=== PATIENT | male | born 1980 | race American Indian/Alaskan Native ===

== ENCOUNTER 2018-11-28 18:53 | Emergency (ER) | payer OTHER, SELFPAY ==
[2018-11-28 19:05] VITALS: BP 111/77; PULSE 106; RESP 16; TEMP 36.7; O2SAT 98; BMI 26.6
[2018-11-28 19:10] VITALS: O2SAT 98
--- NOTE | 2018-11-28 19:25 | ED.BACK ---
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 It was his 2nd dive of the day, his 1st went to a max depth of 82, with an average of 69 ft, he was down for 45 minutes on a compressor and had a 90 minutes break prior to this, his 2nd dive. This was a 33 minutes dive again to a maximum depth of 82 ft, this dive ended at 4:05 p.m. any states his symptoms started about 1 hour later and lasted 1 hour. He denies any headache, blurred vision or or trouble with speech. He denies chest pain, shortness of breath or abdominal pain. his only ongoing symptoms are he is intensely itchy from his waist up, and had pain in both shoulders which is largely gone. MD Complaint: back pain Onset (ago): hour(s) Duration: now resolved Similar Symptoms Previously: No Location: lumbar spine Severity: moderate Quality: aching Radiation: left leg and right leg Relieving factors: none Exacerbating factors: none Associated symptoms: numbness and difficulty walking Related Data Previous Rx's Medication Instructions Recorded fluocinonide 0 TOPICAL TID #30 gm 04/22/17 celecoxib [Celebrex] 200 mg PO BID #60 cap 06/25/17 gabapentin [Neurontin] 0 PO SEE INSTRUCTIONS #150 tab 06/25/17 Allergies Allergy/AdvReac Type Severity Reaction Status Date / Time No Known Drug Allergies Allergy Verified 11/28/18 19:10 Review of Systems Constitutional Denies chills, Denies fever(s), Denies lethargy and Reports weakness Eyes Denies change in vision, Denies eye discharge, Denies irritation and Denies loss of vision ENT Ears, Nose, Mouth, and Throat: Denies change in voice, Denies neck pain and Denies sore throat Cardiovascular Denies chest pain, Denies irregular heart rhythm, Denies lightheadedness, Denies palpitations, Denies dyspnea, Denies dyspnea on exertion and Denies orthopnea Respiratory Denies cough, Denies dyspnea, Denies dyspnea on exertion and Denies wheezing Gastrointestinal Gastrointestinal: Denies abdominal pain, Denies change in bowel habits, Denies diarrhea, Denies nausea and Denies vomiting Genitourinary Denies hematuria, Denies flank pain, Denies urinary incontinence and Denies urinary urgency Musculoskeletal Reports muscle cramps, Denies neck pain and Reports numbness Integumentary/Breasts Denies pruritus, Denies erythema, Denies rash and Denies wounds Neurologic Denies confusion, Denies loss of vision, Reports numbness and Reports weakness Psychiatric Denies anxiety, Denies confusion, Denies depression, Denies homicidal ideation and Denies suicidal ideation Endocrine Denies palpitations Hematologic/Lymphatic Denies easy bruising Allergic/Immunologic Denies wheezing PFSH Social History Smoking Status: Never smoker Social History Smoking Status: Never smoker Exam Narrative Exam Narrative: GENERAL: [38] year old patient appears stated age. Well-nourished, well-developed patient, in mild distress. HEAD: Atraumatic. Normocephalic. EYES: Pupils equal round and reactive. Extraocular motions intact. No scleral icterus. No injection or drainage. ENT: Nose without bleeding, purulent drainage. Throat without erythema, tonsillar hypertrophy or exudate. Airway patent. NECK: Trachea midline. Non tender CARDIOVASCULAR: Regular rate and rhythm without murmurs, gallops, or rubs. RESPIRATORY: Clear to auscultation. Breath sounds equal bilaterally. No wheezes, rales, or rhonchi. GASTROINTESTINAL: Abdomen soft, non-tender, nondistended. EXTREMITIES: No edema or joint tenderness. BACK: Nontender without deformity or crepitance. No flank tenderness. NEURO: AOx3. SKIN: No rash or erythema of visible areas Initial Vital Signs Initial Vital Signs: Vital Signs Temperature 98.1 F 11/28/18 19:05 Pulse Rate 106 H 11/28/18 19:05 Respiratory Rate 16 11/28/18 19:05 Blood Pressure 111/77 11/28/18 19:05 Pulse Oximetry 98 11/28/18 19:05 Course Orders Ordered: ED Orders 11/28/18 19:30 Basic Metabolic Panel Stat C-Reactive Protein Quant Stat Complete Blood Count AUTO DIFF Stat Erythrocyte Sedimentation Rate Stat 11/28/18 19:39 XR chest 2V Stat Reevaluation(s) Reevaluation #1: Patient completely asymptomatic for newly entirety of visit. Consultations Consultation #1: call to [facility], after discussion they do not hear any obvious, significantly concerning findings consistent with decompression illness but do recommend consultation with dive physician Consultation #2: Called to hyperbaric physician at [facility], Dr. Viera, whom shares this opinion, that this is not classically decompression illness. His recommendation is to administer oxygen for for at least 2 more hours and discharged home with strict return precautions and instructions [facility] Vital Signs - 8 hr 11/28/18 19:05 11/28/18 19:10 11/28/18 19:40 Temperature 98.1 F Pulse Rate 106 H 75 Respiratory Rate 16 14 Blood Pressure 111/77 Blood Pressure [Right Arm] 116/71 Pulse Oximetry 98 98 100 11/28/18 21:00 11/28/18 21:30 11/28/18 23:08 Temperature Pulse Rate 63 65 72 Respiratory Rate 15 12 Blood Pressure 116/76 Blood Pressure [Right Arm] 114/68 126/70 Pulse Oximetry 100 100 100 MDM - Back Pain/Injury Lab Data Result diagrams: 11/28/18 19:30 11/28/18 19:30 Lab Results 11/28/18 11/28/18 Range/Units 19:30 19:30 WBC 6.9 (4.5-11.0) X10^3/uL RBC 5.08 (4.5-5.9) X10^6/uL Hgb 15.2 (13.5-17.5) g/dL Hct 44.3 (41-53) % MCV 87.3 (80-100) fL MCH 30.0 (26-34) PG MCHC 34.4 (30-36) % RDW 13.5 (11.6-14.8) % Plt Count 250 (150-400) X10^3/uL Neut % (Auto) 59.0 (50-75) % Lymph % (Auto) 33.1 (25-40) % [place] % (Auto) 5.8 (3-14) % Eos % (Auto) 1.5 L (2-4) % Baso % (Auto) 0.6 (0-2) % Neut # (Auto) 4100 (8922-9423) /uL Lymph # (Auto) 2300 (8084-1848) /uL [place] # (Auto) 400 (0-900) /uL Eos # (Auto) 100 (0-450) /uL Baso # (Auto) 0 (0-100) /uL ESR 1 (0-15) MM/HR Sodium 141 (137-145) mmol/L Potassium 3.7 (3.4-5.1) mmol/L Chloride 103 (98-107) mmol/L Carbon Dioxide 26 (22-32) mmol/L BUN 10 (9-20) mg/dL Creatinine 0.80 (0.66-1.25) mg/dL Estimated GFR > 60.0 (>60) mL/min BUN/Creatinine Ratio 12.5 (6-22) Glucose 90 (70-100) mg/dL Calcium 9.7 (8.4-10.2) mg/dL C-Reactive Protein < 0.5 (<1.0) mg/dL MDM Narrative Medical decision making narrative: Multiple etiologies for patient's symptoms considered including: [Decompression illness versus musculoskeletal pain in the back versus allergic reaction versus toxic envenomation versus other] Patient's symptoms improved or duration of stay with above-stated therapies. Findings and discharge diagnosis discussed with patient/family followed by verbalization of understanding Return precautions discussed with patient/family whom verbalize understanding. Discharge Plan Departure Patient Disposition: Home Clinical Impression: Back pain Qualifiers: Back pain location: low back pain Chronicity: unspecified Back pain laterality: bilateral Sciatica presence: without sciatica Qualified Code(s): M54.5 - Low back pain Decompression sickness Qualifiers: Encounter type: initial encounter Qualified Code(s): T70.3XXA - Caisson disease [decompression sickness], initial encounter Discharge Date/Time: 11/28/18 23:09 Interventions: ED Discharge Assessment Last Done: 11/28/18 23:08 Instructions: DI for Back Spasm Activity Restrictions/Additional Instructions: *You have been diagnosed with [back pain, possible mild decompression illness] *What to do: *Take medications as directed: Tylenol or Motrin for pain *Follow [facility] tomorrow morning, ploease call [phone] and ask for Hyperbaric Medicine. *Return to ER if you should have any new, worsening or concerning symptoms Prescriptions: No Action fluocinonide 0.05 % cream Topical TID Qty: 30 RF: 3 celecoxib [Celebrex] 200 MG capsule 200 mg PO BID Qty: 60 RF: 11 gabapentin [Neurontin] 600 MG tablet PO SEE INSTRUCTIONS Qty: 150 RF: 11
--- NOTE | 2018-11-28 19:33 | ED_ITS ---
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 It was his 2nd dive of the day, his 1st went to a max depth of 82, with an average of 69 ft, he was down for 45 minutes on a compressor and had a 90 minutes break prior to this, his 2nd dive. This was a 33 minutes dive again to a maximum depth of 82 ft, this dive ended at 4:05 p.m. any states his symptoms started about 1 hour later and lasted 1 hour. He denies any headache, blurred vision or or trouble with speech. He denies chest pain, shortness of breath or abdominal pain. his only ongoing symptoms are he is intensely itchy from his waist up, and had pain in both shoulders which is largely gone. MD Complaint: back pain Onset (ago): hour(s) Duration: now resolved Similar Symptoms Previously: No Location: lumbar spine Severity: moderate Quality: aching Radiation: left leg and right leg Relieving factors: none Exacerbating factors: none Associated symptoms: numbness and difficulty walking Related Data Previous Rx's Medication Instructions Recorded fluocinonide 0 TOPICAL TID #30 gm 04/22/17 celecoxib [Celebrex] 200 mg PO BID #60 cap 06/25/17 gabapentin [Neurontin] 0 PO SEE INSTRUCTIONS #150 tab 06/25/17 Allergies Allergy/AdvReac Type Severity Reaction Status Date / Time No Known Drug Allergies Allergy Verified 11/28/18 19:10 Review of Systems Constitutional Denies chills, Denies fever(s), Denies lethargy and Reports weakness Eyes Denies change in vision, Denies eye discharge, Denies irritation and Denies loss of vision ENT Ears, Nose, Mouth, and Throat: Denies change in voice, Denies neck pain and Denies sore throat Cardiovascular Denies chest pain, Denies irregular heart rhythm, Denies lightheadedness, Denies palpitations, Denies dyspnea, Denies dyspnea on exertion and Denies orthopnea Respiratory Denies cough, Denies dyspnea, Denies dyspnea on exertion and Denies wheezing Gastrointestinal Gastrointestinal: Denies abdominal pain, Denies change in bowel habits, Denies diarrhea, Denies nausea and Denies vomiting Genitourinary Denies hematuria, Denies flank pain, Denies urinary incontinence and Denies urinary urgency Musculoskeletal Reports muscle cramps, Denies neck pain and Reports numbness Integumentary/Breasts Denies pruritus, Denies erythema, Denies rash and Denies wounds Neurologic Denies confusion, Denies loss of vision, Reports numbness and Reports weakness Psychiatric Denies anxiety, Denies confusion, Denies depression, Denies homicidal ideation and Denies suicidal ideation Endocrine Denies palpitations Hematologic/Lymphatic Denies easy bruising Allergic/Immunologic Denies wheezing PFSH Social History Smoking Status: Never smoker Social History Smoking Status: Never smoker Exam Narrative Exam Narrative: GENERAL: [38] year old patient appears stated age. Well- nourished, well-developed patient, in mild distress. HEAD: Atraumatic. Normocephalic. EYES: Pupils equal round and reactive. Extraocular motions intact. No scleral icterus. No injection or drainage. ENT: Nose without bleeding, purulent drainage. Throat without erythema, tonsillar hypertrophy or exudate. Airway patent. NECK: Trachea midline. Non tender CARDIOVASCULAR: Regular rate and rhythm without murmurs, gallops, or rubs. RESPIRATORY: Clear to auscultation. Breath sounds equal bilaterally. No wheezes, rales, or rhonchi. GASTROINTESTINAL: Abdomen soft, non-tender, nondistended. EXTREMITIES: No edema or joint tenderness. BACK: Nontender without deformity or crepitance. No flank tenderness. NEURO: AOx3. SKIN: No rash or erythema of visible areas Initial Vital Signs Initial Vital Signs: Vital Signs Temperature 98.1 F 11/28/18 19:05 Pulse Rate 106 H 11/28/18 19:05 Respiratory Rate 16 11/28/18 19:05 Blood Pressure 111/77 11/28/18 19:05 Pulse Oximetry 98 11/28/18 19:05 Course Orders Ordered: ED Orders 11/28/18 19:30 Basic Metabolic Panel Stat C-Reactive Protein Quant Stat Complete Blood Count AUTO DIFF Stat Erythrocyte Sedimentation Rate Stat 11/28/18 19:39 XR chest 2V Stat Reevaluation(s) Reevaluation #1: Patient completely asymptomatic for newly entirety of visit. Consultations Consultation #1: call to [facility], after discussion they do not hear any obvious, significantly concerning findings consistent with d ecompression illness but do recommend consultation with dive physician Consultation #2: Called to hyperbaric physician at [facility], Dr. Viera, whom shares this opinion, that this is not classically decompression illness. His recommendation is to administer oxygen for for at least 2 more hours and discharged home with strict return precautions and instructions to [facility] tomorrow Vital Signs - 8 hr 11/28/18 19:05 11/28/18 19:10 11/28/18 19:40 Temperature 98.1 F Pulse Rate 106 H 75 Respiratory Rate 16 14 Blood Pressure 111/77 Blood Pressure [Right Arm] 116/71 Pulse Oximetry 98 98 100 11/28/18 21:00 11/28/18 21:30 11/28/18 23:08 Temperature Pulse Rate 63 65 72 Respiratory Rate 15 12 Blood Pressure 116/76 Blood Pressure [Right Arm] 114/68 126/70 Pulse Oximetry 100 100 100 MDM - Back Pain/Injury Lab Data Result diagrams: 11/28/18 19:30 11/28/18 19:30 Lab Results 11/28/18 11/28/18 Range/Units 19:30 19:30 WBC 6.9 (4.5-11.0) X10^3/uL RBC 5.08 (4.5-5.9) X10^6/uL Hgb 15.2 (13.5-17.5) g/dL Hct 44.3 (41-53) % MCV 87.3 (80-100) fL MCH 30.0 (26-34) PG MCHC 34.4 (30-36) % RDW 13.5 (11.6-14.8) % Plt Count 250 (150-400) X10^3/uL Neut % (Auto) 59.0 (50-75) % Lymph % (Auto) 33.1 (25-40) % [place] % (Auto) 5.8 (3-14) % Eos % (Auto) 1.5 L (2-4) % Baso % (Auto) 0.6 (0-2) % Neut # (Auto) 4100 (8996-4984) /uL Lymph # (Auto) 2300 (0913-0982) /uL [place] # (Auto) 400 (0-900) /uL Eos # (Auto) 100 (0-450) /uL Baso # (Auto) 0 (0-100) /uL ESR 1 (0-15) MM/HR Sodium 141 (137-145) mmol/L Potassium 3.7 (3.4-5.1) mmol/L Chloride 103 (98-107) mmol/L Carbon Dioxide 26 (22-32) mmol/L BUN 10 (9-20) mg/dL Creatinine 0.80 (0.66-1.25) mg/dL Estimated GFR > 60.0 (>60) mL/min BUN/Creatinine Ratio 12.5 (6-22) Glucose 90 (70-100) mg/dL Calcium 9.7 (8.4-10.2) mg/dL C-Reactive Protein < 0.5 (<1.0) mg/dL MDM Narrative Medical decision making narrative: Multiple etiologies for patient's symptoms considered including: [Decompression illness versus musculoskeletal pain in the back versus allergic reaction versus toxic envenomation versus other] Patient's symptoms improved or duration of stay with above-stated therapies. Findings and discharge diagnosis discussed with patient/family followed by verbalization of understanding Return precautions discussed with patient/family whom verbalize understanding. Discharge Plan Departure Patient Disposition: Home Clinical Impression: Back pain Qualifiers: Back pain location: low back pain Chronicity: unspecified Back pain laterality: bilateral Sciatica presence: without sciatica Qualified Code(s): M54.5 - Low back pain Decompression sickness Qualifiers: Encounter type: initial encounter Qualified Code(s): T70.3XXA - Caisson disease [decompression sickness], initial encounter Discharge Date/Time: 11/28/18 23:09 Interventions: ED Discharge Assessment Last Done: 11/28/18 23:08 Instructions: DI for Back Spasm Activity Restrictions/Additional Instructions: *You have been diagnosed with [back pain, possible mild decompression illness] *What to do: *Take medications as directed: Tylenol or Motrin for pain *Follow [facility] tomorrow morning, ploease call [phone] and ask for Hyperbaric Medicine. *Return to ER if you should have any new, worsening or concerning symptoms Prescriptions: No Action fluocinonide 0.05 % cream Topical TID Qty: 30 RF: 3 celecoxib [Celebrex] 200 MG capsule 200 mg PO BID Qty: 60 RF: 11 gabapentin [Neurontin] 600 MG tablet PO SEE INSTRUCTIONS Qty: 150 RF: 11
--- NOTE | 2018-11-28 19:39 | DI.RAD.S_ITS ---
PROCEDURE: XR CHEST 2V INDICATIONS: dive illnes TECHNIQUE: 2 views of the chest were acquired. COMPARISON: [facility], , CHEST 2 VIEW, 07/09/2016, 14:45. FINDINGS: Surgical changes and devices: Stabilization hardware in the lumbar spine. Lungs and pleura: Chronic scarring and pleural tethering of right lateral lung base. No acute consolidations.. No pleural effusions or pneumothorax. Mediastinum: Mediastinal contours are normal. Heart size is normal. Bones and chest wall: No suspicious bony abnormalities. Soft tissues appear unremarkable. IMPRESSION: No acute process. Dictated by: Qing Manning M.D. on 11/28/2018 at 20:16 Approved by: Qing Manning M.D. on 11/28/2018 at 20:17
[2018-11-28 19:40] VITALS: BP 116/71; PULSE 75; RESP 14; O2SAT 100
--- NOTE | 2018-11-28 19:42 | PC.NURSE ---
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 He has a dive computer and he reports he has stayed within all the rules for dive time and ascending to the surface. Upon surfacing he had no symptoms. 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 He states his back tightned up and then his lower extremities began to get tingly. Thoes symptoms resolved and the tingling feelings moved to his upper extremities and torso. He now states all of thoes symptoms are gone and he is now experiencing an Itchy feeling in his forearms and hands. Pt is on a non rebreather at 15L. Denies all other symptoms or needs at this time.
--- NOTE | 2018-11-28 19:47 | PC.NURSE ---
Transported to from and in xray on 15L nonrebreather.
--- NOTE | 2018-11-28 19:47 | PC.NURSE ---
Pt has previous back injuries and states he did not feel anything that may have exacerbated the areas of previous injury. He states he may have done something due to the kind of work he does but didnt feel anything.
[2018-11-28 19:48] LABS: Add Manual Diff / Slide Review NO; Basophils Absolute Auto 0 /uL (0-100); Basophils Percent Auto 0.6 % (0-2); Eosinophils Absolute Auto 100 /uL (0-450); Eosinophils Percent Auto 1.5 % (2-4); Hematocrit 44.3 % (41-53); Hemoglobin 15.2 g/dL (13.5-17.5); Lymphocytes Absolute Auto 2300 /uL (1100-4500); Lymphocytes Percent Auto 33.1 % (25-40); Mean Corpuscular HGB Conc 34.4 % (30-36); Mean Corpuscular Volume 87.3 fL (80-100); Monocytes Absolute Auto 400 /uL (0-900); Monocytes Percent Auto 5.8 % (3-14); Neutrophils Absolute Auto 4100 /uL (1500-7000); Platelet Count 250 X10^3/uL (150-400); Red Blood Cell Count 5.08 X10^6/uL (4.5-5.9); Red Cell Distribution Width 13.5 % (11.6-14.8); White Blood Cell Count 6.9 X10^3/uL (4.5-11.0)
[2018-11-28 19:57] LABS: BUN Creatinine Ratio 12.5 (6-22); Blood Urea Nitrogen 10 mg/dL (9-20); Calcium 9.7 mg/dL (8.4-10.2); Carbon Dioxide 26 mmol/L (22-32); Chloride 103 mmol/L (98-107); Estimated Glomerular Filt Rate > 60.0 mL/min (>60); Glucose 90 mg/dL (70-100); HEMOLYSIS 20 (0-50); Potassium 3.7 mmol/L (3.4-5.1); Sodium 141 mmol/L (137-145)
[2018-11-28 19:58] LABS: C-Reactive Protein Quant < 0.5 mg/dL (<1.0)
[2018-11-28 20:13] LABS: Erythrocyte Sedimentation Rate 1 MM/HR (0-15)
--- NOTE | 2018-11-28 20:17 | PC.NURSE ---
A visitor came out of the patient's room and asked if he could have crackers and coffee. She stated, I'm the nurses statistical assistant, and I say it's ok. I asked her to please wait while I speak with the doctor. The visitor left; Dr Chowdhury asked that the patient remain NPO for now. Pt and remaining two visitors notified and verbalized agreement.
[2018-11-28 21:00] VITALS: BP 114/68; PULSE 63; O2SAT 100
[2018-11-28 21:30] VITALS: BP 126/70; PULSE 65; RESP 15; O2SAT 100
[2018-11-28 23:08] VITALS: BP 116/76; PULSE 72; RESP 12; O2SAT 100
== END 2018-11-28 23:09 | disposition home or self-care (01) ==
PROVIDERS: Emergency Provider Emergency Medicine
DX: M54.5 Low back pain (principal); T70.3XXA Caisson disease [decompression sickness], initial encounter; R20.0 Anesthesia of skin; R53.1 Weakness
CPT/HCPCS: 71046; 80048; 85025; 85651; 86140; 93005; 99283; 99284; 99285

== ENCOUNTER → 2018-12-23 06:01 | Outpatient (CLI) | payer OTHER, SELFPAY ==
--- NOTE | 2018-12-23 | DI.MRI.S_ITS ---
PROCEDURE: MR LUMBAR SPINE WO CON INDICATIONS: LOW BACK PAIN TECHNIQUE: Noncontrast sagittal T1 spin echo and T2 fast echo, sagittal STIR, axial T1 and T2 fast spin echo through the lumbar spine. In cases with scoliosis, additional coronal T2 fast spin echo may be performed. COMPARISON: [facility], MR, MR THORACIC SPINE WO CON, 12/23/2018, 6:31. [facility], CT, LUMBAR OR SACRAL SPINE WO CONT, 06/29/2006, 15:30. FINDINGS: Image quality: There is susceptibility artifact from the metallic hardware. Alignment and Curvature: S-shaped scoliotic curvature is seen. There is minimal retrolisthesis at the L1-L2, L2-L3, L4-L5, and the L5-S1 levels. Bone Marrow: Marrow is of normal overall signal. No acute vertebral body compression fractures. Spinal Cord: Conus medullaris terminates at the L1 level. Visualized cord demonstrates normal signal and size. Paraspinous Soft Tissues: No paravertebral masses. Postoperative changes are seen, bilateral pedicle screws at the L1-L4 levels. The screws appear well placed. Vertical fixation rods are seen. There is associated susceptibility artifact. There is partial visualization of focal degenerative change at T10-T11. T12-L1: Normal appearance. L1-L2: Postoperative changes, without a significant abnormality. L2-L3: There are postoperative changes seen. Mild to moderate loss of disc height and disc signal are seen. Mild generalized disc bulge is seen. No significant neural foraminal or central canal narrowing can be seen. L3-L4: Postoperative changes can be seen. The disc height and disk signal are well-preserved. Mild generalized disc bulge is seen. No neural foraminal or central canal narrowing are seen. L4-L5: The disc height is well-preserved. Loss of disc signal is seen at this level. There is a focal annular fissure seen posteriorly, as on series 2 image 10. Moderate disc bulge is seen, with a central disc protrusion. There is mild right-sided and mild to moderate left-sided neural foraminal narrowing seen. [id number] central canal narrowing is seen. L5-S1: There is at least moderate loss of disc height and disc signal is seen. Endplate irregularity can be seen. Posteriorly projected endplate osteophytes are seen. Moderate disc bulge is seen, with a central protruding component. There is severe right-sided and moderate to severe left-sided neural foraminal narrowing seen. There is a degree of compression seen upon the exiting nerve roots. The central canal is widely patent. IMPRESSION: Unremarkable L3-L4 postoperative change. Focal lower lumbar spine degenerative changes are seen, which are worst at the L5-S1 level. An annular fissure posteriorly at the L4-L5 level. Dictated by: Hal Torres M.D. on 12/23/2018 at 8:52 Approved by: Hal Torres M.D. on 12/23/2018 at 8:57
--- NOTE | 2018-12-23 | DI.MRI.S_ITS ---
PROCEDURE: MR THORACIC SPINE WO CON INDICATIONS: BACK PAIN TECHNIQUE: Noncontrast sagittal T1 spine echo and T2 fast spin echo, sagittal STIR, axial T1 and T2 fast spin echo through the thoracic spine. COMPARISON: [facility], US, ABDOMEN COMPLETE, 11/20/2010, 12:26. [facility], CT, LUMBAR OR SACRAL SPINE WO CONT, 06/29/2006, 15:30. [facility], MR, MR LUMBAR SPINE WO CON, 12/23/2018, 7:05. FINDINGS: Image quality: Excellent. Alignment and Curvature: S-shaped scoliotic curvature is seen. Bone Marrow: Marrow is of normal overall signal. No acute vertebral body compression fractures. Spinal Cord: Visualized spinal cord is normal in size and signal. Paraspinous Soft Tissues: No paravertebral masses. Miscellaneous: At the T10-T11 level, there is focal degenerative change seen, with at least moderate disc space narrowing and moderate to prominent disc bulge. There is a central disc protrusion seen. There is associated mild to moderate central canal narrowing and moderate to severe bilateral neural foraminal narrowing seen. Milder degenerative changes are seen elsewhere, yet without additional level and significant canal or neural foraminal narrowing. Lumbar spine fixation hardware is partially seen. An apparent gallstone can be seen, as on series 8 image 29. IMPRESSION: Focal T10-T11 degenerative change. Apparent gallstone incidentally noted. Dictated by: Hal Torres M.D. on 12/23/2018 at 8:48 Approved by: Hal Torres M.D. on 12/23/2018 at 8:52
== END ==
PROVIDERS: Visit Provider Family Medicine
DX: M54.5 Low back pain (principal); M47.817 Spondylosis without myelopathy or radiculopathy, lumbosacral region; M47.816 Spondylosis without myelopathy or radiculopathy, lumbar region; M47.814 Spondylosis without myelopathy or radiculopathy, thoracic region; K80.20 Calculus of gallbladder without cholecystitis without obstruction
CPT/HCPCS: 72146; 72148

== ENCOUNTER → 2021-02-06 09:13 | Outpatient (CLI) | payer OTHER, SELFPAY ==
--- NOTE | 2021-02-06 09:14 | DI.MRI.S_ITS ---
PROCEDURE: MR CERVICAL SPINE WO CON INDICATIONS: Other symptoms and signs involving the nervous sys TECHNIQUE: Noncontrast sagittal T1 spin echo and T2 fast spin echo, sagittal STIR, foraminal oblique sagittal T2 fast spin echo, and axial gradient echo or T2 fast spin echo through the cervical spine. COMPARISON: RG, XR C-SPINE 4-6V, 09/02/1999, 8:58. FINDINGS: Image quality: Excellent. Alignment and Curvature: There is loss of normal cervical lordosis. There is mild kyphosis at C3-C5. Bone Marrow: Marrow demonstrates normal overall signal. Mild reactive signal within the endplates adjacent to the C3-C4, C4-C5, C5-C6, and C6-C7 intervertebral discs. Spinal Cord: Visualized spinal cord has normal size and signal. No cerebellar tonsillar herniation. Paraspinous Soft Tissues: No paravertebral masses. Prevertebral soft tissues are normal in thickness. C2-C3: Moderate disc desiccation. Mild disc height loss and diffuse disc bulge. Congenital canal stenosis. Overall mild to moderate canal stenosis. Mild bilateral foraminal stenosis. C3-C4: Congenital canal stenosis. Moderate disc height loss and desiccation. Mild diffuse disc bulge with superimposed small central protrusion. Moderate left and mild right facet and uncovertebral hypertrophy. Moderate to severe canal stenosis. Mild cord flattening. Mild right and moderate left foraminal stenosis. C4-C5: Congenital canal stenosis. Moderate disc height loss and desiccation. Mild diffuse disc bulge. Moderate left and mild right facet and uncovertebral hypertrophy. Moderate to severe canal stenosis. Mild cord flattening. Severe left and moderate right foraminal stenosis. Left C5 nerve root compression. C5-C6: Congenital canal stenosis. Moderate disc height loss and desiccation. Mild diffuse disc bulge with superimposed right paracentral protrusion. Mild facet and uncovertebral hypertrophy. Moderate to severe canal stenosis. Mild left and moderate right foraminal stenosis. C6-C7: Congenital canal stenosis. Mild disc height loss. Moderate disc desiccation. Mild diffuse disc bulge with superimposed broad-based central protrusion. Moderate facet and uncovertebral hypertrophy bilaterally. Severe canal stenosis. Mild cord flattening. Moderate to severe right and mild left foraminal stenosis. Mild right C7 nerve root compression. C7-T1: Moderate disc height loss and desiccation. Mild diffuse disc bulge. Mild facet and uncovertebral hypertrophy. Mild canal stenosis. Mild bilateral foraminal stenosis. IMPRESSION: 1. Diffuse congenital canal stenosis with superimposed disc and facet disease, as well as uncovertebral hypertrophy. 2. Multilevel canal stenoses, worst at C3-C4, C4-C5, and C6-C7, where there is mild cord flattening present. 3. Multilevel foraminal stenoses, worst at C4-C5 and C6-C7 where there is associated intraforaminal nerve root compression. Recommend correlation with clinical symptoms to ascertain relevance of these findings. Dictated by: Talya Aponte M.D. on 02/06/2021 at 13:38 Approved by: Talya Aponte M.D. on 02/06/2021 at 13:41
== END ==
PROVIDERS: PCP Family Medicine; Referring Provider Family Medicine; Visit Provider Family Medicine
DX: M48.02 Spinal stenosis, cervical region (principal); M47.812 Spondylosis without myelopathy or radiculopathy, cervical region; M50.31 Other cervical disc degeneration, high cervical region; R29.818 Other symptoms and signs involving the nervous system
CPT/HCPCS: 72141

== ENCOUNTER → 2022-01-14 13:40 | Outpatient (CLI) | payer OTHER, SELFPAY ==
--- NOTE | 2022-01-14 | DI.US.S_ITS ---
PROCEDURE: US SCROTUM INDICATIONS: Enlargement of scrotal sac TECHNIQUE: Real-time scanning was performed of the scrotum and testicles, with image documentation. Color and pulse Doppler interrogation was performed of both testicles. COMPARISON: None. FINDINGS: Right: Testicle is normal in size at 5.1 x 3.5 x 2.6 cm, and homogenous in echotexture. Heterogeneous echotexture in right epididymis is seen. Clustered right epididymal cysts are seen measures in aggregate 4 x 4.4 x 2 cm in size.. No hydrocele or varicoceles. Overlying scrotal skin is normal in thickness. Left: Testicle is normal in size at 5.3 x 3.5 x 3.3 cm, and heterogeneous in echotexture. Epididymis is normal in overall size and morphology. Right epididymal head cyst is noted measures 3 x 3 x 2 mm in size. No varicoceles. Moderate to large left hydrocele is seen with internal debris is noted and measures 6.6 x 4.3 x 3.4 cm in size. Non mobile echogenic focus in left inferior scrotal wall is seen measures 4 x 3 x 3 mm in size with acoustic shadowing. Overlying scrotal skin is mildly thickened with trace amount of fluid.. Doppler: Color and pulse Doppler demonstrate increased arterial flow in both testes more prominent on the left side. Increased vascularity in bilateral epididymi are also seen. IMPRESSION: 1. Finding is suggestive of bilateral orchitis and epididymitis. No discrete testicular lesion is seen. Bilateral epididymal cysts as above. 2. Left scrotal wall thickening. Large left-sided hydrocele with internal debris. Focal calcification in inferior left scrotal wall which may represent sequelae from prior infection. Dictated by: Brock Keene M.D. on 01/14/2022 at 16:26 Approved by: Brock Keene M.D. on 01/14/2022 at 16:31
== END ==
PROVIDERS: PCP Family Medicine; Referring Provider Physician Assistant; Visit Provider Physician Assistant
DX: N50.89 Other specified disorders of the male genital organs (principal); N50.3 Cyst of epididymis; N43.3 Hydrocele, unspecified
CPT/HCPCS: 76870